=== PATIENT | male | born 1945 | race Caucasian/White ===

== ENCOUNTER 2021-08-20 14:26 | Emergency (ER) | payer MEDICARE ==
[2021-08-20] MEDS ORDERED: Adenosine 6 MG/2 ML SDV ONE (14:37)
[2021-08-20] MEDS ORDERED: Sodium Chloride 0.9% 10 ML Syringe FLUSH PRN (14:37)
[2021-08-20] MEDS ORDERED: Adenosine 6 MG/2 ML SDV IVPUSH ONE ×2 (14:37)
[2021-08-20] MEDS ORDERED: Amiodarone 150 MG/3 ML SDV IVPUSH ONE (14:39)
[2021-08-20] MEDS ORDERED: Sodium Chloride 0.9% 1,000 ML IV SCH (14:45)
[2021-08-20 15:13] LABS: TROPONIN I HIGH SENSITIVITY 18.4 pg/mL (<=60.3)
== END 2021-08-20 17:30 | disposition home or self-care (01) ==
LOC: JP.ED 14:26
DX: R00.0 Tachycardia, unspecified (principal); I10 Essential (primary) hypertension; E78.00 Pure hypercholesterolemia, unspecified; Z72.0 Tobacco use; Z79.82 Long term (current) use of aspirin; Z79.899 Other long term (current) drug therapy
CPT/HCPCS: 36415; 71045; 71045-26; 80053; 84484; 85025; 93010; 96374; 99283; 99285-25; J0153